=== PATIENT | female | born 1970 | race African-American/Black ===

== ENCOUNTER 2016-11-25 14:10 | Emergency (ER) | payer OTHER ==
[~2016-11-25] VITALS: Ht 180.3 cm; Wt 124.7 kg
[2016-11-25 14:35] VITALS: BP 161/93
--- NOTE | 2016-11-25 15:51 | ED INFLUENZA/URI COMPLAINT ---
History of Present Illness General Chief Complaint: Low Back Pain/Injury Stated Complaint: LOWER BACK PAIN/"GRUGGLING WHEN IM SLEEPING" Source: patient, old records Exam Limitations: no limitations Vital Signs & Intake/Output Vital Signs & Intake/Output Vital Signs Date Time Temp Pulse Resp B/P Pulse O2 O2 Flow FiO2 Ox Delivery Rate 11/25 1435 98.0 55 20 161/93 96 Room Air Allergies Coded Allergies: acetaminophen (From TYLENOL) (HIVES 11/25/16) Reconcile Medications Azithromycin 500 MG TABLET 1 TAB PO DAILY URI Triage Note: PT TO ED C/O UPPER BACK PAIN AND "GURGLING WHEN SLEEPING". STATES "WHEEZY AND HEAVY HEAD". DENIES FEVERS AT HOME, DENIES COUGH. AFEBRILE NOW. "IM WORRIED IT'S PNEUMONIA". Triage Nurses Notes Reviewed? yes Onset: Gradual Duration: week(s): (1), constant Timing: recent history Severity: mild Severity Numbers: 4 Prior Episodes/Possible Cause: occassional episodes No Modifying Factors: none Associated Symptoms: cough, nasal congestion : No Patient currently breastfeeds: No HPI: 46-year-old female presents emergency room complaining of a one-week history of rhinorrhea congestion, nonproductive cough for the past 1 week. She's been using [id number] medications without improvement. The patient states she has a history of similar symptoms in the past and was diagnosed with walking pneumonia. She denies any fever chills chest pain shortness of breath she does not smoke. No history of asthma, symptoms were gradual in onset aching constant. She states they're worse at nighttime. No sick contacts recent travel Past History Travel History Traveled to [place] past 21 day No Medical History Any Pertinent Medical History? see below for history Cardiovascular: hypertension Surgical History Surgical History: none Psychosocial History What is your primary language Marshallese Tobacco Use: Never used ETOH Use: occasional use Illicit Drug Use: denies illicit drug use Family History Hx Contributory? No Review of Systems Review of Systems Constitutional: Reports: see HPI. All Other Systems: Reviewed and Negative Comments Review of systems: See HPI, All other systems negative. Constitutional, no chills no fever, no malaise HEENT: No visual changes no sore throat no congestion, Cardiovascular: No chest pain , no palpitation Skin, no rashes, no change in skin Respiratory: No dyspnea no cough no sputum GI: No nausea no vomiting, no diarrhea, : No dysuria Muscle skeletal: No joint pain, no back pain, no neck pain, Neurologic: No numbnessno headache Psych: No stress Heme/endocrine: No bruising no bleeding Immunology: No lymphadenopathy Physical Exam Physical Exam General Appearance: well developed/nourished, no apparent distress, alert, awake , comfortable Ears, Nose, Throat: normal ENT inspection, moist mucous membrane, hearing grossly normal, Tympanic normal, pharynx normal Comments: Well-developed well-nourished patient in no apparent distress. Head/Face: Atraumatic, no maxillary/frontal sinus tenderness, no facial swelling Eyes: PERRL, EOMI, no conjunctival injection. No nystagmus Ear:External auditory canal and Tympanic membranes clear, no erythema, no FB. Nose: atraumatic.Normal inspection: No bleeding, no septal hematoma Throat: Moist mucous membranes.Pharynx normal. No pharyngeal erythema/exudate seen. No stridor/drooling or assymetry. No swelling or edema. Neck: Supple, no lymphadenopathy, FROM Back: FROM, Nontender Cardiovascular: Regular rate and rhythms no murmurs rubs or gallops, Respiratory: Chest nontender.There were no bony deformities, no asymmetry. No respiratory distress. Patient speaking in full complete sentences. Breath sounds clear to auscultation bilaterally: NO W/R/R Extremities: full range of motion Neuro: Alert and oriented x3 Skin: Warm & dry;No appreciable rash on exposed skin Psych: Mood affect normal, normal memory normal judgment. Core Measures Severe Sepsis Present: No Septic Shock Present: No Progress Differential Diagnosis: influenza, pneumonia, pharyngitis, sinusitis, bronchitis , uri Plan of Care: Orders Procedure Date/time Status XRY-CHEST XRAY, PA AND LATERAL 11/25 1556 Active X-ray Labs ordered old records reviewed I discussed with patient her x-ray results E for supportive care perception for Karan was called into her pharmacy advise close follow-up with her primary care this week, return anytime sooner with any concerns answered all her questions she feels comfortable at this plan (MILDRED ROJAS,STEVEN) Diagnostic Imaging: Viewed by Me: Radiology Read. Discussed w/RAD: Radiology Read. Radiology Impression: PATIENT: EBENEZER BURK PRESENT AGE: 46 PATIENT ACCOUNT NO: [id number] : 71 LOCATION: [facility] ORDERING PHYSICIAN: STEVEN ROJAS SERVICE DATE: 11/25/16 EXAM TYPE: RAD - XRY- CHEST XRAY, PA AND LATERAL EXAMINATION: XR CHEST CLINICAL INFORMATION: Cough. COMPARISON: None TECHNIQUE: 2 views of the chest were obtained. FINDINGS: No significant abnormality is noted involving the heart, lungs, mediastinum, bony thorax or soft tissues. IMPRESSION: Normal chest. DICTATED BY: RANJIT BRADSHAW MD DATE/TIME DICTATED:11/25/161632 RAILROAD BRAKEMAN:DARIAN DATE/TIME TRANSCRIBED:11/25/161632 CONFIDENTIAL, DO NOT COPY WITHOUT APPROPRIATE AUTHORIZATION. <Electronically signed in Other Vendor System> SIGNED BY: RANJIT BRADSHAW MD 11/25/161635 Initial ED EKG: none Departure Departure Time of Disposition: 1627 Disposition: HOME OR SELF CARE Condition: Stable Clinical Impression Primary Impression: URI (upper respiratory infection) Referrals: DEEPAK REESE MD (PCP/Family) Additional Instructions: dima as directed, this was sent to your pharmacy. Follow up with your pmd this week, return with any concerns Departure Forms: Customer Survey General Discharge Information Prescriptions: Current Visit Scripts Azithromycin 1 TAB PO DAILY #5 TAB
[2016-11-25] MEDS ORDERED: AZITHROMYCIN500 M3 PO (16:28)
--- NOTE | 2016-11-25 16:36 | RADIOLOGY REPORT ---
EXAMINATION: XR CHEST CLINICAL INFORMATION: Cough. COMPARISON: None TECHNIQUE: 2 views of the chest were obtained. FINDINGS: No significant abnormality is noted involving the heart, lungs, mediastinum, bony thorax or soft tissues. IMPRESSION: Normal chest.
== END 2016-11-25 16:33 ==
LOC: ERH 14:10
DX: J06.9 Acute upper respiratory infection, unspecified (principal)